=== PATIENT | female | born 1990 | race African-American/Black ===

== ENCOUNTER 2017-08-15 04:00 | Emergency (ER) | payer SELFPAY ==
[~2017-08-15] VITALS: Ht 172.7 cm; Wt 95.3 kg
--- NOTE | 2017-08-15 04:00 | NUR ---
26 YO FEMALE BB SELF. PATIENT IS ALERT AND ORIENTED X 3, C/O ABD PAIN WITH NAUSEA AND VOMIT. PATIENT AMBULATED TO ER BED, SKIN WARM AND DRY, RESP EVEN AND UNLABORED. PATIENT PLACED ON PROMOTIONS REPRESENTATIVE, AWAITING ORDERS FROM PROVIDER
[2017-08-15] MEDS ORDERED: ONDANSETRON HCL/PF 4 MG/2 ML VIAL ONE ×2 (04:12→06:01)
[2017-08-15] MEDS ORDERED: MORPHINE SULFATE INJ 4 MG/ML DISP.SYRIN ONE (04:32)
[2017-08-15 04:48] LABS: BASOPHILS % (AUTO) 0.8 % (0.0-2.0); EOSINOPHILS % (AUTO) 1.3 % (0.0-6.0); HEMATOCRIT 40 % (33-45); HEMOGLOBIN 13.7 g/dL (11.5-14.8); LYMPHOCYTES # (AUTO) 2.1 /CMM (0.8-4.8); LYMPHOCYTES % (AUTO) 35.6 % (20.0-44.0); MEAN CORPUSCULAR HGB CONC 34 g/dl (31.0-36.0); MEAN CORPUSCULAR VOLUME 87 fL (82-100); MONOCYTES # (AUTO) 0.4 /CMM (0.1-1.30); MONOCYTES % (AUTO) 7.5 % (2.0-12.0); NEUTROPHILS # (AUTO) 3.2 /CMM (1.8-8.9); NEUTROPHILS % (AUTO) 54.8 % (43.0-81.0); PLATELET COUNT (AUTO) 221 /CMM (150-450); RDW COEFFICIENT OF VARIATION 12.1 (11.5-15.0); RED BLOOD CELL COUNT(AUTO) 4.63 MIL/uL (4.0-5.2); WHITE BLOOD COUNT (AUTO) 5.8 K/uL (4.3-11.0)
[2017-08-15] MEDS ORDERED: HYDROMORPHONE INJ 2 MG/ML DISP.SYRIN ONE (04:53)
[2017-08-15] MEDS ORDERED: IV NS 0.9% 1,000 ML BAG IV ONE ×2 (05:00→06:00)
[2017-08-15] MEDS ORDERED: MORPHINE SULFATE INJ 4 MG/ML DISP.SYRIN IV ONE (05:00)
[2017-08-15] MEDS ORDERED: ONDANSETRON HCL/PF 4 MG/2 ML VIAL IV ONE ×2 (05:00→06:00)
[2017-08-15] MEDS ORDERED: HYDROMORPHONE 1 MG/1 ML DISP.SYRIN IV ONE (05:00)
[2017-08-15 05:08] LABS: APPEARANCE,URINE CLEAR (CLEAR); BILIRUBIN,URINE NEGATIVE (NEGATIVE); BLOOD, URINE NEGATIVE Ery/uL (NEGATIVE); COLOR,URINE YELLOW (YELLOW); KETONES,URINE NEGATIVE (NEGATIVE); LEUKOCYTE ESTERASE ,URINE NEGATIVE (NEGATIVE); NITRITE, URINE NEGATIVE (NEGATIVE); PROTEIN,URINE NEGATIVE (NEGATIVE); UGLUCOSE NEGATIVE (NEGATIVE); UROBILINOGEN,URINE 0.2 EU/dL (0.2)
[2017-08-15 05:15] LABS: CREATININE 0.8 mg/dL (0.6-1.3); POTASSIUM 3.4 mmol/L (3.5-5.1)
[2017-08-15 05:21] LABS: ALBUMIN 4.2 g/dL (3.4-5.0); BILIRUBIN,TOTAL 0.4 mg/dL (0.2-1.0); TOTAL PROTEIN, SERUM 7.7 g/dL (6.4-8.2)
[2017-08-15] MEDS ORDERED: LORAZEPAM INJ 2 MG/ML VIAL ONE (06:49)
[2017-08-15] MEDS ORDERED: diphenhydrAMINE HCL 50 MG/ML VIAL ONE (06:50)
[2017-08-15] MEDS ORDERED: PROCHLORPERAZINE EDISYLATE 10 MG/2 ML VIAL ONE (06:50)
--- NOTE | 2017-08-15 06:59 | NUR ---
MEDICATED PT ORDERED
[2017-08-15] MEDS ORDERED: PROCHLORPERAZINE EDISYLATE 10 MG/2 ML VIAL IVP ONE (07:00)
[2017-08-15] MEDS ORDERED: LORAZEPAM INJ 2 MG/ML VIAL IV ONE (07:00)
--- NOTE | 2017-08-15 08:01 | NUR ---
Patient discharged to home in stable condition. Written and verbal after care instructions given. Patient verbalizes understanding of instruction.IV removed. Catheter intact and site benign. Pressure and 4x4 applied to site. No bleeding noted. VSS upon discharge
[2017-08-15 08:02] VITALS: BP 122/67
== END 2017-08-15 08:03 | disposition home or self-care (01) ==
LOC: ER 04:03
DX: E86.0 Dehydration (principal); R11.10 Vomiting, unspecified; R10.11 Right upper quadrant pain
CPT/HCPCS: 36415; 76700-TC; 80053-TC; 81000-TC; 83690-TC; 84703-TC; 85025-TC; A4606; J0780; J1170; J1200; J2060; J2270; J2405; J7030; Z7610